=== PATIENT | male | born 2000 | race Hispanic/Latino ===

== ENCOUNTER 2021-04-26 13:17 | Emergency (ER) | payer SELFPAY ==
--- NOTE | 2021-04-26 14:19 | RAD REPORT ---
EXAM DESCRIPTION: David Single View04/26/2021 2:07 pm CLINICAL HISTORY: Chest pain COMPARISON: none FINDINGS: The lungs appear clear of acute infiltrate. The heart is normal size IMPRESSION: No acute abnormalities displayed
[2021-04-26 14:23] LABS: Protime INR 0.94
[2021-04-26 14:25] LABS: Absolute Lymphocytes (CBC) 1.7 K/uL (0.7-4.9); Hematocrit 44.8 % (39.6-49.0); Lymphocytes % 25.7 % (15.3-44.8); MPV 8.5 fL (7.6-11.3); RBC Red Blood Cell Count 5.25 M/uL (4.33-5.43)
[2021-04-26 14:49] LABS: ALT/SGPT 49 U/L (12-78); AST/SGOT 21 U/L (15-37); Albumin 4.3 g/dL (3.4-5.0); Alkaline Phosphatase 146 U/L (45-117); BUN Blood Urea Nitrogen 14 mg/dL (7-18); Bicarbonate 30 mmol/L (21-32); Bilirubin Direct 0.1 mg/dL (0-0.2); Bilirubin Total 0.4 mg/dL (0.2-1.0); Glucose Level 139 mg/dL (74-106); Potassium 3.8 mmol/L (3.5-5.1); Protein, Total 8.5 g/dL (6.4-8.2); Sodium Level 139 mmol/L (136-145)
[2021-04-26 14:57] LABS: NT PRO-BNP < 5 pg/mL (<125)
--- NOTE | 2021-04-26 16:30 | EDPHYS ---
Physician Documentation [facility] Name: Michael Lee Age: 20 yrs Sex: Male : 2000 Arrival Date: 04/26/2021 Time: 13:19 Bed 10 Private MD: ED Physician Anderson Jarvis HPI: 04/26 13:38 This 20 yrs old Male presents to ER via Ambulatory with complaints of Chest jmm Pain. 13:38 The patient or guardian reports chest pain that is located primarily in the substernal [facility] area. The pain does not radiate. Associated signs and symptoms: Pertinent positives: shortness of breath. The chest pain is described as squeezing. Duration: The patient or guardian reports multiple episodes. This is a 20-year-old male with no known chronic medical conditions presents emerged part with complaints of left-sided chest pain beginning this morning. Patient described the pain is tight or squeezing patient also felt some chills. Patient states he has had previous episodes of chest pain like this and has been evaluated by a dry pan feeder who diagnosed him with with a muscular pain. Patient denies any history of family members dying at young ages. Denies leg swelling, hemoptysis, exogenous estrogen use, history of blood clots, history of surgery, history of cancer.. Historical: - Allergies: 13:37 No Known Allergies; ld1 - Home Meds: 13:37 None [Active]; ld1 - PMHx: 13:37 None; ld1 - PSHx: 13:37 None; ld1 - Immunization history:: Adult Immunizations up to date, Client reports receiving the 2nd dose of the Covid vaccine, Pfizer. - Social history:: Smoking status: Patient reports the use of cigarette tobacco products, smokes one-half pack cigarettes per day, Patient uses alcohol, on a daily basis. ROS: 13:38 Constitutional: Positive for chills. jmm 13:38 Cardiovascular: Positive for chest pain. 13:38 Respiratory: Positive for shortness of breath. 13:38 All other systems are negative. Exam: 13:38 Constitutional: This is a well developed, well nourished patient who is awake, alert, jmm and in no acute distress. Head/Face: atraumatic. Eyes: EOMI, no conjunctival erythema appreciated ENT: Moist Mucus Membranes Neck: Trachea midline, Supple Chest/axilla: Normal chest wall appearance and motion. 13:38 Respiratory: Normal respirations, no respiratory distress appreciated Abdomen/GI: Non distended, soft Back: Normal ROM Skin: General appearance color normal MS/ Extremity: Moves all extremities, no obvious deformities appreciated, no edema noted to the lower extremities Neuro: Awake and alert Psych: Behavior is normal, Mood is normal, Patient is cooperative and pleasant 13:38 Cardiovascular: Rate: normal, Rhythm: regular, Pulses: no pulse deficits are appreciated. Vital Signs: 13:36 BP 154 / 94; Pulse 95; Resp 18; Temp 98.2(TE); Pulse Ox 99% on R/A; Weight 72.57 kg; ld1 Height 5 ft. 6 in. (167.64 cm); Pain 7/10; 13:36 Body Mass Index 25.82 (72.57 kg, 167.64 cm) ld1 MDM: 16:[address] [facility] 16:28 Data reviewed: vital signs, nurses notes. Counseling: I had a detailed discussion with bryce the patient and/or guardian regarding: the historical points, exam findings, and any diagnostic results supporting the discharge/admit diagnosis, lab results, radiology results, the need for outpatient follow up, to return to the emergency department if symptoms worsen or persist or if there are any questions or concerns that arise at home. ED course: PERC negative for PE. I do not currently suspect ACS. Patient advised to follow-up with cardiology for further evaluation otherwise given strict return precautions. Patient understood agrees plan of care. Patient does state that he feels much better.. 04/26 13:38 Order name: Basic Metabolic Panel 04/26 13:38 Order name: CBC with Diff; Complete Time: 16:18 04/26 13:38 Order name: LFT's; Complete Time: 16:18 04/26 13:38 Order name: Magnesium; Complete Time: 16:18 04/26 13:38 Order name: NT PRO-BNP; Complete Time: 16:18 04/26 13:38 Order name: PT-INR; Complete Time: 16:18 04/26 13:38 Order name: Troponin HS; Complete Time: 16:18 04/26 13:38 Order name: XRAY Chest (1 view); Complete Time: 16:18 ld1 04/26 13:38 Order name: EKG; Complete Time: 13:39 ld1 04/26 13:38 Order name: Cardiac monitoring ld04/26 13:38 Order name: EKG - Nurse/Tech; Complete Time: 13:38 ld1 04/26 13:38 Order name: IV Saline Lock; Complete Time: 14:11 ld1 04/26 13:38 Order name: Labs collected and sent; Complete Time: 14:12 ld04/26 13:39 Order name: Basic Metabolic Panel; Complete Time: 16:18 [facility] 04/26 13:38 Order name: O2 Per Protocol ld04/26 13:38 Order name: O2 Sat Monitoring ld1 Administered Medications: No medications were administered Disposition: 17:35 Co-signature as Attending Physician, Anderson Jarvis MD I agree with the assessment and kdr plan of care. Disposition Summary: 04/26/21 16:29 Discharge Ordered Location: Home [facility] Condition: Stable [facility] Diagnosis - Chest pain, unspecified [facility] Followup: m - With: Esteban Shah MD - When: 2 - 3 days - Reason: Recheck today's complaints, Continuance of care, Re-evaluation by your physician Discharge Instructions: - Discharge Summary Sheet [facility] - Nonspecific Chest Pain, Adult [facility] Forms: - Medication Reconciliation Form [facility] - Thank You Letter [facility] - Antibiotic Education [facility] - Prescription Opioid Use [facility] Prescriptions: - Medrol (Jay) 4 mg Oral Tablets, Dose Pack - take 1 tablet by ORAL route as directed - follow package instructions; 1 [facility] packet; Refills: 0, Product Selection Permitted - orphenadrine citrate 100 mg Oral Tablet Sustained Release - take 1 tablet by ORAL route 2 times per day As needed; 20 tablet; Refills: 0, [facility] Product Selection Permitted Signatures: Dispatcher [employer] Anderson Vu MD MD kdr Mickail, Joel, PA PA [facility] Cynthia Aaron, RN RN ld1
--- NOTE | 2021-04-26 16:30 | ER ---
Nurse's Notes [facility] Name: Michael Lee Age: 20 yrs Sex: Male : 2000 Arrival Date: 04/26/2021 Time: 13:19 Bed 10 Private MD: Diagnosis: Chest pain, unspecified Presentation: 04/26 13:36 Chief complaint: Patient states: Upper left chest pain X 1 day. Denies trauma, denies ld1 N/V/D. Coronavirus screen: At this time, the client does not indicate any symptoms associated with coronavirus-19. Ebola Screen: No symptoms or risks identified at this time. Initial Sepsis Screen: Does the patient meet any 2 criteria? No. Patient's initial sepsis screen is negative. Does the patient have a suspected source of infection? No. Patient's initial sepsis screen is negative. Risk Assessment: Do you want to hurt yourself or someone else? Patient reports no desire to harm self or others. Onset of symptoms was April 26, 2021. 13:36 Method Of Arrival: Ambulatory ld1 13:36 Acuity: PATTI 3 ld1 Triage Assessment: 13:37 General: Appears in no apparent distress. comfortable, Behavior is calm, cooperative, ld1 appropriate for age. Pain: Complains of pain in anterior aspect of left upper chest Pain does not radiate. Pain currently is 7 out of 10 on a pain scale. Quality of pain is described as stabbing, Pain began gradually, Is continuous. Neuro: Level of Consciousness is awake, alert, obeys commands, Oriented to person, place, time, situation. Cardiovascular: Capillary refill < 3 seconds Patient's skin is warm and dry. Rhythm is regular. Respiratory: Airway is patent Respiratory effort is even, unlabored. Historical: - Allergies: 13:37 No Known Allergies; ld1 - Home Meds: 13:37 None [Active]; ld1 - PMHx: 13:37 None; ld1 - PSHx: 13:37 None; ld1 - Immunization history:: Adult Immunizations up to date, Client reports receiving the 2nd dose of the Covid vaccine, Pfizer. - Social history:: Smoking status: Patient reports the use of cigarette tobacco products, smokes one-half pack cigarettes per day, Patient uses alcohol, on a daily basis. Vital Signs: 13:36 BP 154 / 94; Pulse 95; Resp 18; Temp 98.2(TE); Pulse Ox 99% on R/A; Weight 72.57 kg; ld1 Height 5 ft. 6 in. (167.64 cm); Pain 7/10; 13:36 Body Mass Index 25.82 (72.57 kg, 167.64 cm) ld1 ED Course: 13:19 Patient arrived in ED. as 13:37 Triage completed. ld1 13:37 Arm band placed on right wrist. EKG completed in triage. Results shown to MD. ld1 14:07 XRAY Chest (1 view) In Process Unspecified. EDMS 14:12 Inserted saline lock: 20 gauge in right antecubital area, using aseptic technique. ld1 Blood collected. 15:44 Neymar Ferreira PA is PHCP. [facility] 15:44 Anderson Jarvis MD is Attending Physician. [facility] 16:29 Esteban Shah MD is Referral Physician. [facility] 16:32 Basic Metabolic Panel Sent. 16:36 IV discontinued, intact, bleeding controlled, No redness/swelling at site. ld1 Administered Medications: No medications were administered Outcome: 16:29 Discharge ordered by MD. [facility] 16:36 Discharged to home ambulatory. ld1 16:36 Condition: stable 16:36 Discharge instructions given to patient, Instructed on discharge instructions, follow up and referral plans. medication usage, Demonstrated understanding of instructions, follow-up care, medications. 16:36 Patient left the ED. ld1 Signatures: Dispatcher [employer] EDMS Neymar Ferreira PA PA jmm Martinez, Amelia as Dibbern, Lauren, KRISTYN RN 1 Yadira Licona RN RN
[2021-04-26 16:46] VITALS: BP 154/94; TEMP 98.2; O2SAT 99
== END 2021-04-26 16:36 | disposition home or self-care (01) ==
LOC: ER 13:17
DX: R07.9 Chest pain, unspecified (principal); F17.210 Nicotine dependence, cigarettes, uncomplicated
CPT/HCPCS: 36415; 71045; 80048; 80076; 83735; 83880; 84484; 85025; 85610; 93005; 99283